=== PATIENT | female | born 1965 | race Caucasian/White ===

== ENCOUNTER 2024-01-27 06:01 | Inpatient (IN) ==
--- NOTE | 2024-01-10 10:35 | PAT Medication Instructions ---
Medication Instructions Date of Service January 10, 2024 Home Medications aspirin 81 mg tablet,delayed release 81 mg PO PM calcium carbonate 600 mg-vitamin D3 10 mcg (400 unit) tablet (Calcium 600 + D(3)) 1 tab PO HS coenzyme Q10 100 mg capsule (Co Q-10) 100 mg PO TID cyanocobalamin (vitamin B-12) 500 mcg lozenges 1,000 mcg PO PM estradiol 0.5 mg tablet 0.5 mg PO QAM hydrocodone 7.5 mg-acetaminophen 325 mg tablet 1 tab PO Q6H PRN indomethacin 50 mg capsule 50 mg PO TID magnesium 200 mg tablet 50 mg PO TID simvastatin 20 mg tablet (Zocor) 20 mg PO HS sumatriptan succinate 100 mg tablet (Imitrex) 100 mg PO UD PRN tramadol 50 mg tablet 50 mg PO Q6H PRN zolpidem 5 mg tablet (Ambien) 5 mg PO HS PRN Continue as directed sumatriptan succinate 100 mg tablet (Imitrex) 100 mg PO UD PRN(if needed) ASK your surgeon for instructions indomethacin 50 mg capsule 50 mg PO TID ASK your prescriber and surgeon aspirin 81 mg tablet,delayed release 81 mg PO PM estradiol 0.5 mg tablet 0.5 mg PO QAM STOP taking 2 weeks before surgery (or as soon as possible if surgery is within 2 weeks) coenzyme Q10 100 mg capsule (Co Q-10) 100 mg PO TID DO NOT take the morning of surgery magnesium 200 mg tablet 50 mg PO TID Take morning of surgery With a small sip of water, OTHERWISE NOTHING TO EAT OR DRINK AFTER MIDNIGHT: hydrocodone 7.5 mg-acetaminophen 325 mg tablet 1 tab PO Q6H PRN(if needed) tramadol 50 mg tablet 50 mg PO Q6H PRN(if needed) Take evening before surgery calcium carbonate 600 mg-vitamin D3 10 mcg (400 unit) tablet (Calcium 600 + D(3)) 1 tab PO HS cyanocobalamin (vitamin B-12) 500 mcg lozenges 1,000 mcg PO PM hydrocodone 7.5 mg-acetaminophen 325 mg tablet 1 tab PO Q6H PRN(if needed) tramadol 50 mg tablet 50 mg PO Q6H PRN(if needed) magnesium 200 mg tablet 50 mg PO TID simvastatin 20 mg tablet (Zocor) 20 mg PO HS zolpidem 5 mg tablet (Ambien) 5 mg PO HS PRN(if needed) Other Notes If you have any questions please call us at [phone] or [phone] or [phone] or [phone]
--- NOTE | 2024-01-17 13:26 | Anesthesiology Consultation ---
Date of Service January 17, 2024 Assessment & Plan (1) Encounter for pre-operative examination: Plan - awaiting final medical clearance. - Patient contacted office 01/23/24 in the morning and states that in recent days she has experienced onset of generalized significant arthralgias and skin is hot to touch-I advise that she needs to seek prompt medication evaluation and she verbalized understanding, states she will contact her PCP after our call and notify our office of outcome of evaluation. Surgeon's office notified. - medical clearance 01/10/24: "...preoperative visit...spinal surgery...no prior adverse reaction to general anesthesia...rash on her right upper leg has resolved...was evaluated by dermatology...clearance pending perioperative workup..." PAT testing to be faxed to PCP for final clearance. Chart Review Chart Review: Pending: Refer to Additional Notes / Consult section and Patient seen in Pre Admission Testing Teaching & Discussion Pre-Anesthesia Teaching/Discussion Notes: Instructed NPO after midnight before surgery, except medications with 15 cc of water. Medication instructions provided according to the PAT guidelines. History Surgery Operation Date: 01/27/24 07:45 Proposed Procedures p T11 to L2 and L5 to S1 Decompression and Fusion with Iliac Bolts, Hardware Removal L2-L5 - Francisco Javier Adams DO s Right Sacroiliac Joint Fusion - Francisco Javier Adams DO Patient is accompanied today by her . Height/Weight Height: 5 ft 5 in Weight: 130.8 kg Allergies Allergy/AdvReac Type Severity Reaction Status Date / Time No Known Allergies Allergy Unknown Verified 01/09/24 11:35 Medications Home Medications Medication Instructions Recorded Confirmed Last Taken aspirin 81 mg tablet,delayed 81 mg PO PM 01/09/24 01/09/24 Unknown release calcium carbonate 600 mg-vitamin 1 tab PO HS 01/09/24 01/09/24 Unknown D3 10 mcg (400 unit) tablet (Calcium 600 + D(3)) coenzyme Q10 100 mg capsule (Co 100 mg PO TID 01/09/24 01/09/24 Unknown Q-10) cyanocobalamin (vitamin B-12) 500 1,000 mcg PO PM 01/09/24 01/09/24 Unknown mcg lozenges estradiol 0.5 mg tablet 0.5 mg PO QAM 01/09/24 01/09/24 Unknown hydrocodone 7.5 mg-acetaminophen 1 tab PO Q6H PRN Pain 01/09/24 01/09/24 Unknown 325 mg tablet indomethacin 50 mg capsule 50 mg PO TID 01/09/24 01/09/24 Unknown magnesium 200 mg tablet 50 mg PO TID 01/09/24 01/09/24 Unknown simvastatin 20 mg tablet (Zocor) 20 mg PO HS 01/09/24 01/09/24 Unknown sumatriptan succinate 100 mg 100 mg PO UD PRN Migraine Headache 01/09/24 01/09/24 Unknown tablet (Imitrex) tramadol 50 mg tablet 50 mg PO Q6H PRN Pain 01/09/24 01/09/24 Unknown zolpidem 5 mg tablet (Ambien) 5 mg PO HS PRN Sleep 01/09/24 01/09/24 Unknown Past Medical History Medical History Chronic back pain History of COVID-19 Jul 06 2023 > symptoms resolved History of kidney stones passed on own Hyperlipidemia Lumbar stenosis with neurogenic claudication Migraines Patient denies h/o stroke, seizures, heart attack, heart failure, DM, HTN, blood clots/DVTs or blood transfusions. Exercise / Class Metabolic Activity II 4-5 Yardwork/Stairs/Walk up hill (denies chest discomfort or shortness of breath with one flight of stairs) Past Surgical History Surgical History History of arthroscopy bilat knees History of breast biopsy benign History of colonoscopy History of lumbar fusion x3 fusion L2-5 History of lumbar surgery prior to fusions History of total knee replacement bilat Hx of hysterectomy Past Anesthesia History No Hx of Anesthesia Complications and No Family Hx of Anesthesia Complications History of PONV No Hx of PONV and No Hx of Motion Sickness Social History Smoking Status: Former smoker Do You Dip or Chew Tobacco: No Smoking End Date: 16 yrs Hx Alcohol Use: No Hx Substance Use: No substance use type: does not use Review of Systems Occasional snoring, denies witnessed apneas. Patient denies chest pain, shortness of breath, dyspnea on exertion, reflux, fever, chills, cough, wheezing, or palpitations. Physical Exam Vital Signs Vitals BP 131/80 P 74 TEMP 98.4 SP02 96% on RA RESP 18 Physical Patient resting comfortably in chair in no acute distress, alert and oriented, responding appropriately throughout visit Full cervical extension range of motion without pain TMD < 3 finger breadths Mallampati Score 3 Dentition: intact, denies chipped or loose teeth, caps/crowns, implants or bridges Lungs: normal respiratory effort. Good air movement, clear throughout to auscul tation, no adventitious breath sounds Cardiac: regular rate and rhythm, no murmurs noted Carotid arteries: negative bruit bilat Lab Results Anesthesia Preop Results Results Anesthesia Widget: WBC 8.90 K/ul (4.8-10.8) 01/17/24 Hgb 12.3 g/dl (12.0-16.0) 01/17/24 Hct 39.8 % (37.0-47.0) 01/17/24 Plt 206 K/uL (130-400) 01/17/24 Na 137 mmol/L (136-145) 01/17/24 K 4.4 mmol/L (3.5-5.1) 01/17/24 Cl 102 mmol/L (98-107) 01/17/24 CO2 29 mmol/L (21-32) 01/17/24 BUN 15 mg/dl (6-23) 01/17/24 Creat 0.87 mg/dl (0.6-1.2) 01/17/24 Glucose Level 86 mg/dl (70-99(Fasting)) 01/17/24 PT 10.1 Seconds (9.0-12.0) 01/17/24 PTT 27 Seconds (21-31) 01/17/24 INR 0.9 (0.9-1.1) 01/17/24 Urine Color Yellow 01/17/24 Urine Appearance Clear (Clear) 01/17/24 Urine pH 5.5 (4.5-7.5) 01/17/24 Urine Specific Sheldon 1.023 (1.000-1.030) 01/17/24 Urine Protein Negative (Negative) 01/17/24 Urine Glucose (UA) Negative (Negative) 01/17/24 Urine Ketones Trace (Negative) H 01/17/24 Urine Blood Negative (Negative) 01/17/24 Urine Nitrite Negative (Negative) 01/17/24 Urine Bilirubin Negative (Negative) 01/17/24 Urine Urobilinogen Negative (Negative) 01/17/24 Urine Leukocyte Esterase Negative (Negative) 01/17/24 Blood Type A Positive 01/17/24 Antibody Screen NEGATIVE 01/17/24 Testing Electrocardiogram Date: 01/17/24 NSR, rate 71 bpm Chest X-Ray Date: 01/17/24 No active disease in the chest.
[2024-01-27] MEDS: LR 60ML/HR IV SCH (06:51)
[2024-01-27] MEDS: LR 15ML/HR IV SCH (06:52)
[2024-01-27] MEDS: CeleBREX 200 MG CAP PO SCH (06:52)
[2024-01-27] MEDS: ACETAMINOPHEN 500 MG TAB PO SCH (06:52)
[2024-01-27] MEDS: GABAPENTIN 600 MG DOSE PO SCH (06:52)
[2024-01-27] MEDS ORDERED: LIDOCAINE 2% 2 ML VIAL/AMP(20MG/ML) INFIL ONE (07:00)
[2024-01-27] MEDS ORDERED: PHENYLEPHRINE HCL 10 MG/ML VIAL ONE (07:00)
[2024-01-27] MEDS ORDERED: ROCURONIUM BROMIDE 10 MG/ML 5 ML VIAL IV ONE ×3 (07:00→10:20)
[2024-01-27] MEDS ORDERED: PROPOFOL IV EMULSION 10 MG/ML 20 ML VIAL IV ONE (07:00)
[2024-01-27] MEDS ORDERED: fentaNYL citrate PF 100 MCG/2 ML VIAL ONE (07:00)
[2024-01-27] MEDS ORDERED: ONDANSETRON INJ 2 MG/ML 2 ML VIAL ONE (07:00)
[2024-01-27] MEDS ORDERED: DEXAMETHASONE SOD INJ 4 MG/ML VIAL ONE (07:00)
[2024-01-27] MEDS ORDERED: KETAMINE HCL 10MG/ML SYR ONE (07:01)
[2024-01-27] MEDS ORDERED: MIDAZOLAM HCL 1 MG/ML 2ML VIAL ONE (07:01)
[2024-01-27] MEDS ORDERED: ALBUMIN HUMAN 5% 12.5 GM/250 ML VIAL IV ONE (07:07)
[2024-01-27] MEDS ORDERED: DexMEDEtomidine HCL IV 100 MCG/ML VIAL IV ONE (07:21)
[2024-01-27] MEDS ORDERED: ATROPINE SULFATE 0.1 MG/ML 10ML SYR IV PRN (07:21)
[2024-01-27] MEDS ORDERED: HYDROmorphone INJ 2 MG/ML SYR/VIAL IV PRN (07:21)
[2024-01-27] MEDS ORDERED: ePHEDrine sulfate 50 MG/ML AMP IV PRN (07:21)
[2024-01-27] MEDS ORDERED: ONDANSETRON INJ 2 MG/ML 2 ML VIAL IV PRN (07:21)
--- NOTE | 2024-01-27 07:41 | History & Physical Bridge Note ---
Date of Service January 27, 2024 History & Physical Bridge Note I have examined the patient, reviewed the History & Physical and in the interval since the performance of the History & Physical I have noted the following changes of clinical significance: no changes noted
--- NOTE | 2024-01-27 07:42 | History & Physical Report ---
Date of Service January 27, 2024 Assessment & Plan (1) Neurogenic claudication due to lumbar spinal stenosis: Plan: T11-L2 and L5-S1 decompression and fusion with iliac bolts, right SI joint fusion hardware removal L2-L5 History of Present Illness Chief Complaint: Back and leg pain Primary Care Provider: Crista Self MD This is a 58-year-old female who presents with chronic persistent back and leg pain and failing course of nonoperative care she is here for surgical invention. Allergies Allergy/AdvReac Type Severity Reaction Status Date / Time No Known Allergies Allergy Unknown Verified 01/27/24 06:21 Home Medications Medication Instructions Recorded Confirmed Type aspirin 81 mg tablet,delayed 81 mg PO PM 01/09/24 01/27/24 History release calcium carbonate 600 mg-vitamin 1 tab PO HS 01/09/24 01/27/24 History D3 10 mcg (400 unit) tablet (Calcium 600 + D(3)) coenzyme Q10 100 mg capsule (Co 100 mg PO TID 01/09/24 01/27/24 History Q-10) cyanocobalamin (vitamin B-12) 500 1,000 mcg PO PM 01/09/24 01/27/24 History mcg lozenges estradiol 0.5 mg tablet 0.5 mg PO QAM 01/09/24 01/27/24 History hydrocodone 7.5 mg-acetaminophen 1 tab PO Q6H PRN Pain 01/09/24 01/27/24 History 325 mg tablet indomethacin 50 mg capsule 50 mg PO TID 01/09/24 01/27/24 History magnesium 200 mg tablet 50 mg PO TID 01/09/24 01/27/24 History simvastatin 20 mg tablet (Zocor) 20 mg PO HS 01/09/24 01/27/24 History sumatriptan succinate 100 mg 100 mg PO UD PRN Migraine Headache 01/09/24 01/27/24 History tablet (Imitrex) tramadol 50 mg tablet 50 mg PO Q6H PRN Pain 01/09/24 01/27/24 History zolpidem 5 mg tablet (Ambien) 5 mg PO HS PRN Sleep 01/09/24 01/27/24 History Past Med/Surg History Problem List (Updated 01/27/24 @ 07:42 by Francisco Javier Adams DO) Neurogenic claudication due to lumbar spinal stenosis Encounter for pre-operative examination Lumbar stenosis with neurogenic claudication (Acute 01/25/14) Medical History Chronic back pain History of COVID-19 Jul 06 2023 > symptoms resolved History of kidney stones passed on own Hyperlipidemia Lumbar stenosis with neurogenic claudication Migraines Surgical History History of arthroscopy bilat knees History of breast biopsy benign History of colonoscopy History of lumbar fusion x3 fusion L2-5 History of lumbar surgery prior to fusions History of total knee replacement bilat Hx of hysterectomy Social History Smoking Status: Former smoker Smoking End Date: 18 yrs; Second Hand Exposure: No; Do You Dip or Chew Tobacco: No; Tobacco Cessation Education Requested by Patient: No Hx Alcohol Use: No Hx Substance Use: No Preferred Language: Welsh Communication Ability: Effective Mallet And Die Cutter Required: No Beliefs That Will Affect Care: None Current Living Situation: Spouse Other Information That Helps Us Care for You: No Feels Safe at Home: Yes Safety Concerns: Feels Safe At This Time Assistive Devices: None Physical Exam Physical Exam: Patient is alert and oriented heart regular in rhythm Lungs clear Results & Data Results & Data Vital Signs (Past 12 Hours) Vital Signs Temp Pulse Resp BP Pulse Ox O2 Del Method 01/27/24 06:29 36.9 C 88 20 176/94 H 94 Room Air
[2024-01-27] MEDS: ceFAZolin 3000MG 3,000 MG/72.5 ML BAG IV SCH (07:50)
[2024-01-27] MEDS ORDERED: HYDROmorphone INJ 2 MG/ML SYR/VIAL ONE (08:24)
[2024-01-27] MEDS ORDERED: SUGAMMADEX SODIUM 200 MG/2 ML VIAL IV ONE (10:20)
[2024-01-27] MEDS: BUPIVACAINE/EPINEPHRINE 0.25% 1:200,000 30 ML VIAL ONE (11:04)
[2024-01-27] MEDS: ceFAZolin 330 MG/ML 1 GM VIAL ONE (11:04)
[2024-01-27] MEDS: FLOSEAL HEMOSTATIC MATRIX 10ML TOP ONE (11:04)
--- NOTE | 2024-01-27 11:22 | Operative Report ---
Post Operative Report Pre & Post Diagnosis Operation Date: 01/27/24 07:45 Pre-Op Diagnosis: Spinal Stenosis of Lumbar Region with Neurogenic Claudication Sacroiliitis Bertolotti syndrome Morbid obesity Post-Op Diagnosis: Same I identified the patient and participated in the time-out.: Yes Procedure Operation Date: 01/27/24 07:45 Actual Procedures #1 removal of posterior instrumentation L2-L5.. #2 exploration of fusion L2-L5. #3 lumbar decompression with bilateral medial facetectomies and foraminotomies L5-S1. #4 posterior spinal fusion L5-S1. #5 interbody fusion L5-S1. #6 placement of Spira 12 x 26 mm x 2 at L5-S1. #7 bilateral open SI joint fusion. #8 placement of Nevro 9 mm SI joint cage on the right. #9 placement posterior segmental instrumentation L2-S1 including bilateral iliac bolts. #10 please infuse collagen sponge combined with Koros bone graft in the interbody space and bilateral SI joints and os design bone graft in the interbody space. Surgeon Francisco Javier Adams, DO Rose Grower Franklyn Lopez Estimated Blood Loss 1,150 Findings See Below The patient is 5 foot 5 weighing over 120 kg with a BMI in excess of 47. This combined with an EBL of greater than 1150 cc created significant technical difficulty from positioning exposure and the procedure itself. This at least 50% increased operative time. I am recommending a modifier 22. Specimens None Indications This is a 58-year-old female known to the presents above-mentioned diagnosis of failed extensive course of nonoperative care she is here for surgical invention. Description of Procedure Patient was met with identified informed consent obtained. Patient was then taken to the operative suite underwent patient placed in a prone position on the Ezio table on top of the Franco frame. All bony prominences well-padded eyes inspected to ensure no external precipice spine. This point the lumbar spine was prepped and draped in normal sterile fashion. Sharp dissection with the assistance of Bovie cautery form down to and exposing the instrumentation at L 2 L3-L4-L5 bilaterally. Then exposed the bilateral sacral ala and SI joints as well as the iliac crests. I then removed the instrumentation bilaterally explored the fusion mass noting it to be mature and intact. Iliac bolts were then placed bilaterally with the assistance of fluoroscopy in the bilateral SI joints exposed. In the right SI joint I curetted out the subarticular cartilage and placed a Nevro 1 implant filled with os design bone graft directly in the joint locking and into position to transfix the ileum to the sacrum. The left SI joint I burred to subcortical bleeding bone and packed with Koros bone graft and infuse. I performed a complete laminectomy of L4-5 including bilateral medial facetectomies and foraminotomies to address all neural compression. Pedicle screws were then placed in L2 L4-L5 and S1 levels bilaterally with assistance of fluoroscopy and appropriate size bernardo placed with connectors locking into the iliac bolts. By way of transforaminal approach on the right discectomy of L5-S1 was performed endplates guided to subcortical B bone and a 12 x 26 mm spiral cage filled with os design bone graft tapped in position. Then proceeded to the left transforaminal region at L5-S1 again discectomy performed endplates guided to subcortical white bone and a second 12 x 26 mm spiral cage filled with Oxyzyme bone graft tapped in position. The rods were then locked in final position bilaterally. The transverse processes of L5 the sacral ala were burred to subcortical bleeding bone. Infuse collagen sponge, with Koros bone graft was then placed in the posterior lateral gutters. 15 round MARCELINO inserted. The incision was then closed with 1 Vicryl in the fascia 2-0 Vicryl subcutaneously and 4 Monocryl for final closure. Steri-Strips and sterile dressing placed. Patient waken taken to PACU in stable condition. Please note Franklyn Lopez was present out the entire procedure involved in patient positioning complex portions of the surgery and final skin closure. Lastly spinal cord monitoring was utilized at the procedure no changes noted. I attest to the content of the Intraoperative Record and any orders documented therein. Any exceptions are noted below.
--- NOTE | 2024-01-27 11:40 | Fluoroscopy Report ---
FL lumbar spine 2-3V CLINICAL HISTORY: T11-L2 AND L5-S1 D/F W/ ILIAC BOLTS COMPARISON STUDY: None. FLUOROSCOPY TIME: 1 minute 22 seconds. FLUOROSCOPY IMAGES: 4 Ka,r: 145 mGy FINDINGS: Posterior decompression fusion within the thoracolumbar spine with pedicle screws and rods. There are bilateral sacroiliac bolts noted. The exact levels are difficult to determine on the spot images. Hardware appears intact. IMPRESSION: Fluoroscopic assistance as above. ACT 112: Negative or not required by law. Electronically signed by: Inderjit Colby M.D. 01/27/2024 11:38 AM
[2024-01-27] MEDS: fentaNYL citrate PF 100 MCG/2 ML VIAL IV PRN (12:41)
[2024-01-27] MEDS: LACTATED RINGER'S 1,000 ML IV SCH (13:30)
[2024-01-27] MEDS ORDERED: FAMOTIDINE 20 MG TAB PO PRN (13:31)
[2024-01-27] MEDS ORDERED: DO NOT ADMINISTER FLU VACCINE PRN (13:31)
[2024-01-27] MEDS ORDERED: HYDROmorphone INJ 0.5 MG/0.5 ML SYR IV PRN (13:31)
[2024-01-27] MEDS ORDERED: DO NOT ADMINISTER PNEUMOCOCCAL VACCINE PRN (13:31)
[2024-01-27] MEDS ORDERED: ACETAMINOPHEN 1,000 MG/100 ML VIAL IV PRN (13:31)
[2024-01-27] MEDS ORDERED: diphenhydrAMINE Capsule 25 MG CAP PO PRN (13:31)
[2024-01-27] MEDS ORDERED: PROMETHAZINE HCL 12.5 MG in SODIUM CHLORIDE 0.9% 50 ML IV PRN (13:31)
[2024-01-27] MEDS ORDERED: ALUMINUM/MAGNESIUM SUSP 30 ML UDC PO PRN (13:31)
[2024-01-27] MEDS ORDERED: SOD PHOSPHATE/SOD BIPHOSPHATE ENEMA 132 ML BTL PR PRN (13:31)
[2024-01-27] MEDS ORDERED: LORazepam 0.5 MG TAB PO PRN (13:31)
[2024-01-27] MEDS ORDERED: ONDANSETRON 4 MG OD TAB PO PRN (13:31)
[2024-01-27] MEDS ORDERED: LORazepam 0.5 MG in SYRINGE 0.25 ML IV PRN (13:31)
[2024-01-27] MEDS ORDERED: ZOLPIDEM TARTRATE 5 MG TAB PO PRN (13:31)
[2024-01-27] MEDS ORDERED: MAGNESIUM HYDROXIDE SUSP 30 ML UDC PO PRN (13:31)
[2024-01-27] MEDS ORDERED: hydrOXYzine HCl 25 MG TAB PO PRN (13:31)
[2024-01-27] MEDS ORDERED: NALOXONE HCL 0.4 MG/1 ML VIAL/CARP IV PRN (13:31)
[2024-01-27] MEDS ORDERED: bisacodyL 10 MG SUPP PR PRN (13:31)
[2024-01-27] MEDS ORDERED: METOCLOPRAMIDE HCL INJ 5 MG/ML 2 ML VIAL IV PRN (13:31)
--- NOTE | 2024-01-27 13:31 | Anesthesiology Progress Note ---
Date of Service January 27, 2024 Anesthesia Post Procedure Vital Signs Vital Signs: Temp Pulse Resp BP Pulse Ox O2 Del Method O2 Flow Rate 01/27/24 13:15 85 18 108/72 94 Nasal Cannula 2 01/27/24 13:00 78 16 104/66 93 Nasal Cannula 2 01/27/24 12:50 73 16 112/55 L 94 Nasal Cannula 2 01/27/24 12:40 97.7 F 78 16 107/62 96 Nasal Cannula 2 01/27/24 12:30 81 14 122/68 96 Nasal Cannula 2 01/27/24 12:20 84 16 115/70 90 Room Air 01/27/24 12:10 80 16 114/62 98 Oxymask 4 01/27/24 12:00 75 12 139/80 99 Oxymask 6 01/27/24 11:54 98.2 F 90 18 140/74 99 Oxymask 8 01/27/24 06:29 98.4 F 88 20 176/94 H 94 Room Air Pain Intensity Right Lower Back: Pain Intensity: 8 Lower Back: Pain Intensity: 4 Transfer of Care Handoff Completed per policy Notes Mental Status: alert / awake / arousable and participated in evaluation Patient Amnestic to Procedure: Yes Nausea / Vomiting: adequately controlled Pain: adequately controlled Airway Patency, RR, SpO2: stable & adequate BP & HR: stable & adequate Hydration State: stable & adequate Anesthetic Complications: no major complications apparent and Pt Satisfied with anesthetic care
[2024-01-27] MEDS ORDERED: NON-FORMULARY MEDICATION (Coenzyme Q10 [Co Q-10] 100 mg Capsule) PO SCH (14:00)
[2024-01-27] MEDS: HYDROmorphone INJ 1 MG/ML SYRINGE IV PRN (14:05)
[2024-01-27] MEDS: oxyCODONE HCL IR 5 MG TAB (IMMEDIATE RELEASE) PO PRN (15:30)
[2024-01-27] MEDS: MAGNESIUM OXIDE 400 MG TAB PO SCH (15:31)
[2024-01-27] MEDS: ceFAZolin 2000MG 2,000 MG/15 ML SYR IV SCH (16:59)
[2024-01-27] MEDS: ASPIRIN 81 MG ECTAB PO SCH (20:45)
[2024-01-27] MEDS: INDOMETHACIN 25 MG CAP PO SCH (20:45)
[2024-01-27] MEDS: CYANOCOBALAMIN (B-12) 500 MCG TABLET PO SCH (20:46)
[2024-01-27] MEDS: CALCIUM 600MG + VIT D 400 IU TAB PO SCH (20:46)
[2024-01-27] MEDS: SIMVASTATIN 20 MG TAB PO SCH (20:46)
[2024-01-27] MEDS: DOCUSATE SODIUM/SENNA 50/8.6MG TAB PO SCH (20:53)
[2024-01-27] MEDS: SUMAtriptan succinate 100 MG TAB PO PRN (21:56)
[2024-01-28] MEDS: POLYETHYLENE (MIRALAX) 17 GM PACK PO SCH (05:57)
[2024-01-28 06:39] LABS: Basophils # (auto) 0.02 K/uL (0.00-0.20); Basophils % (auto) 0.1 %; Hematocrit (blood only) 29.7 % (37.0-47.0); Immature Granulocytes # (auto) 0.12 K/uL (0.01-0.20); Immature Granulocytes % (auto) 0.8 %; Lymphocytes # (auto) 1.76 K/uL (1.20-3.40); Lymphocytes % (auto) 11.9 %; Mean Corpuscular Hemoglobin 26.5 pg (25.0-34.0); Mean Corpuscular Hgb Conc 30.3 g/dL (32.0-36.0); Mean Corpuscular Volume 87.4 fL (80.0-100.0); Monocytes # (auto) 0.82 K/uL (0.11-0.59); Monocytes % (auto) 5.5 %; Neutrophils # (auto) 12.11 K/uL (1.40-6.50); Neutrophils % (auto) 81.7 %; Platelet Count 220 K/uL (130-400); RDW Coefficient of Variation 15.5 % (11.5-14.5); RDW Standard Deviation 49.1 fL (36.4-46.3); White Blood Count 14.83 K/ul (4.8-10.8)
[2024-01-28 06:46] LABS: BUN Creatinine Ratio 8.7 (10-20); Calcium 8.6 mg/dl (8.6-10.3); Est GFR (African American) 78.4 ml/min; Est GFR (Non-African American) 67.7 ml/min; Potassium 4.2 mmol/L (3.5-5.1)
[2024-01-28] MEDS: estradioL 1 MG TAB PO SCH (08:10)
--- NOTE | 2024-01-28 08:10 | Orthopedic Progress Note ---
Date of Service January 28, 2024 Assessment & Plan (1) Neurogenic claudication due to lumbar spinal stenosis: Plan: This time initiate physical therapy ambulate as tolerated. Monitor MARCELINO output. Admission and Anticipated Discharge Date Admission Date: January 27, 2024 Subjective The patient's pain is controlled. She feels her leg symptoms markedly improved. Physical Exam Physical Exam: Patient is in bed. She is distracted testing. She is comfortable. Results & Data Vital Signs (Past 12 Hours) Vital Signs Temp Pulse Resp BP Pulse Ox O2 Del Method O2 Flow Rate 01/28/24 03:00 36.8 C 71 20 114/61 98 Nasal Cannula 2 01/27/24 23:31 Nasal Cannula 2 01/27/24 22:43 37.1 C 83 18 126/76 98 Nasal Cannula 2 Queries Orthopedic Spine Acute Posthemorrhagic Anemia: Yes Obesity: Yes Vertebral Fracture Secondary to Osteoporosis: No
[2024-01-28] MEDS: dexAMETHasone 6 MG in SYRINGE 0 ML IV SCH (08:12)
--- NOTE | 2024-01-28 08:44 | Hospitalist Consultation ---
Date of Consultation January 28, 2024 Assessment & Plan (1) Neurogenic claudication due to lumbar spinal stenosis: 58-year-old with lumbar spinal stenosis resultant pain radiating down both legs and leg weakness. underwent spinal surgery as below with good results so far. Operation Date: 01/27/24 07:45 Actual Procedures #1 removal of posterior instrumentation L2-L5.. #2 exploration of fusion L2-L5. #3 lumbar decompression with bilateral medial facetectomies and foraminotomies L5-S1. #4 posterior spinal fusion L5-S1. #5 interbody fusion L5-S1. #6 placement of Spira 12 x 26 mm x 2 at L5-S1. #7 bilateral open SI joint fusion. #8 placement of Nevro 9 mm SI joint cage on the right. #9 placement posterior segmental instrumentation L2-S1 including bilateral iliac bolts. #10 please infuse collagen sponge combined with Koros bone graft in the interbody space and bilateral SI joints and os design bone graft in the interbody space. ABLA postop anemia Hg 12-->9 iron supplementation once having regular BMs postop elevated fasting glucose (144 at 5:45 AM) and leukocytosis result of steroid effect hx impaired fasting glucose, at risk for diabetes DVT prophylaxis - SCDs. Chemoprophylaxis when safe per spine surgeon (2) Migraines: continue PRN triptan, tramadol (3) Hyperlipidemia: continue simvastatin (4) Morbid obesity: BMI 47 elevated risk for ÁNGEL but no known history of this caution with opioids and other sedating medications, could trigger respiratory suppression Plan metabolic syndrome on ASA, statin - continued hyst for endometriosis, on HRT Hx B12, vit D deficiencies - cont po B12, Ca/D L TKR, R TKR History of Present Illness Reason for Consultation: evaluate prediabetes, migraine Requesting Physician: Dr. Adams Attending Physician: Francisco Javier Adams, DO History of Present Illness 58 y/o woman with history of multiple back surgeries. Underwent spinal surgery for lumbar spinal stenosis with radiculopathy yesterday. Tolerates surgery well, radicular pain resolved and leg weakness has improved. Still with significant incisional/postop low back pain and drain and amado still in place. Sitting up in chair. No shortness of breath or chest pain. No history of VTE. Has not had BM yet but usually very regular. spinal surgeries 2004, , 10, 14 uses norco prn stopped indomethacin ten days ago preop, increased muscle and joint pain thereafter Has frequent migraine headache several times a week. Controlled with NSAID and triptan. Prediabetes / insulin resistant. BG this AM 140 but had received perioperative dexamethasone. Allergies Allergy/AdvReac Type Severity Reaction Status Date / Time No Known Allergies Allergy Unknown Verified 01/27/24 06:21 Home Medications Medication Instructions Recorded Confirmed Type aspirin 81 mg tablet,delayed 81 mg PO PM 01/09/24 01/27/24 History release calcium carbonate 600 mg-vitamin 1 tab PO HS 01/09/24 01/27/24 History D3 10 mcg (400 unit) tablet (Calcium 600 + D(3)) coenzyme Q10 100 mg capsule (Co 100 mg PO TID 01/09/24 01/27/24 History Q-10) cyanocobalamin (vitamin B-12) 500 1,000 mcg PO PM 01/09/24 01/27/24 History mcg lozenges estradiol 0.5 mg tablet 0.5 mg PO QAM 01/09/24 01/27/24 History hydrocodone 7.5 mg-acetaminophen 1 tab PO Q6H PRN Pain 01/09/24 01/27/24 History 325 mg tablet indomethacin 50 mg capsule 50 mg PO TID 01/09/24 01/27/24 History magnesium 200 mg tablet 50 mg PO TID 01/09/24 01/27/24 History simvastatin 20 mg tablet (Zocor) 20 mg PO HS 01/09/24 01/27/24 History sumatriptan succinate 100 mg 100 mg PO UD PRN Migraine Headache 01/09/24 01/27/24 History tablet (Imitrex) tramadol 50 mg tablet 50 mg PO Q6H PRN Pain 01/09/24 01/27/24 History zolpidem 5 mg tablet (Ambien) 5 mg PO HS PRN Sleep 01/09/24 01/27/24 History Patient History Medical History History of kidney stones passed on own Chronic back pain Migraines History of COVID-19 Jul 06 2023 > symptoms resolved Lumbar stenosis with neurogenic claudication Surgical History History of breast biopsy benign History of colonoscopy History of lumbar fusion x3 fusion L2-5 History of total knee replacement bilat History of arthroscopy bilat knees Hx of hysterectomy History of lumbar surgery prior to fusions Social History Smoking Status: Former smoker Smoking End Date: 18 yrs; Second Hand Exposure: No; Do You Dip or Chew Tobacco: No; Tobacco Cessation Education Requested by Patient: No Hx Alcohol Use: No Hx Substance Use: No Preferred Language: Yakut Communication Ability: Effective Manager Parking Required: No Beliefs That Will Affect Care: None Current Living Situation: Spouse Other Information That Helps Us Care for You: No Feels Safe at Home: Yes Safety Concerns: Feels Safe At This Time Assistive Devices: Cane Review of Systems 2 Review of Systems: All systems reviewed & are unremarkable except as noted in HPI & below Physical Exam 2 Physical Exam: PHYSICAL EXAMINATION Last 24h vital signs reviewed, see documentation in flowsheet General: comfortable appearing, no distress, sitting up in chair HEENT: Normocephalic, atraumatic, pupils round and equal, sclerae anicteric, no conjunctival injection, moist mucus membranes Lungs: Normal respiratory effort. Clear to auscultation bilaterally. No RRW Heart: Regular rate and rhythm, no murmurs. No JVD Abdomen: Soft, nontender, nondistended. Bowel sounds present. lumbar incision is dressed, drain in place Amado catheter with clear yellow urine Extremities: Warm, dry, well-perfused. mild symmetric lower extremity edema. Neuro: Alert and oriented x 4, face symmetric, moves 4 extremities well. knee extension is at least 4 out of 5, dorsi flexion 4 out of 5, plantarflexion 5 out of 5. sensation intact to light touch in both lower extremities Psych: Normal affect and behavior Results & Data Results & Data Vital Signs (Past 12 Hours) Vital Signs Temp Pulse Resp BP Pulse Ox O2 Del Method O2 Flow Rate 01/28/24 08:20 37.0 C 84 18 126/78 98 Nasal Cannula 2 01/28/24 03:00 36.8 C 71 20 114/61 98 Nasal Cannula 2 01/27/24 23:31 Nasal Cannula 2 01/27/24 22:43 37.1 C 83 18 126/76 98 Nasal Cannula 2 Laboratory Results 01/28/24 05:48 01/28/24 05:48 PG Care Time/CCT Total # of Minutes Spent Total Time Spent with Patient: Total time spent is greater than 50% in coordination of care (as documented) at patient's floor/unit and/or counseling patient: Coding Level of Care Code 64010 IN/OBS CONSULT LVL 2,35M Diagnoses Neurogenic claudication due to lumbar spinal stenosis M48.062 Migraines G43.909 Hyperlipidemia E78.5 Morbid obesity E66.01
--- NOTE | 2024-01-29 10:30 | Orthopedic Progress Note ---
Date of Service January 29, 2024 Assessment & Plan (1) Neurogenic claudication due to lumbar spinal stenosis: Plan: This time we will continue physical therapy as tolerated. Will maintain the Ahumada catheter another 24 hours. Hopefully discharge home next few days. Admission and Anticipated Discharge Date Admission Date: January 27, 2024 Subjective Patient's back pain is controlled leg symptoms markedly improved Physical Exam Physical Exam: Patient is in the chair at the bedside. She is comfortable. Discussed when to testing. Results & Data Vital Signs (Past 12 Hours) Vital Signs Temp Pulse Resp BP Pulse Ox O2 Del Method 01/29/24 07:29 36.4 C L 72 18 101/62 95 Room Air Queries Orthopedic Spine Acute Posthemorrhagic Anemia: Yes Obesity: Yes Vertebral Fracture Secondary to Osteoporosis: No
[2024-01-29] MEDS ORDERED: POLYETHYLENE (MIRALAX) 17 GM PACK PO PRN (14:39)
--- NOTE | 2024-01-29 14:41 | Hospitalist Progress Note ---
Date of Service January 29, 2024 Assessment & Plan (1) Neurogenic claudication due to lumbar spinal stenosis: Plan: 58-year-old with lumbar spinal stenosis resultant pain radiating down both legs and leg weakness. underwent spinal surgery as below with good results so far. Operation Date: 01/27/24 07:45 Actual Procedures #1 removal of posterior instrumentation L2-L5.. #2 exploration of fusion L2-L5. #3 lumbar decompression with bilateral medial facetectomies and foraminotomies L5-S1. #4 posterior spinal fusion L5-S1. #5 interbody fusion L5-S1. #6 placement of Spira 12 x 26 mm x 2 at L5-S1. #7 bilateral open SI joint fusion. #8 placement of Nevro 9 mm SI joint cage on the right. #9 placement posterior segmental instrumentation L2-S1 including bilateral iliac bolts. #10 please infuse collagen sponge combined with Koros bone graft in the interbody space and bilateral SI joints and os design bone graft in the interbody space. ABLA postop anemia Hg 12-->9 iron supplementation once having regular BMs postop added back as needed MiraLAX for constipation, also has senna DOS and Fleet enema as needed elevated fasting glucose (144 at 5:45 AM) and leukocytosis result of steroid effect hx impaired fasting glucose, at risk for diabetes DVT prophylaxis - SCDs. Chemoprophylaxis when safe per spine surgeon (2) Migraines: Plan: continue PRN triptan, tramadol (3) Hyperlipidemia: Plan: continue simvastatin (4) Morbid obesity: Plan: BMI 47 elevated risk for ÁNGEL but no known history of this caution with opioids and other sedating medications, could trigger respiratory suppression Plan metabolic syndrome on ASA, statin - continued hyst for endometriosis, on HRT Hx B12, vit D deficiencies - cont po B12, Ca/D L TKR, R TKR possibly home Tuesday Admission and Anticipated Discharge Date Admission Date: January 27, 2024 Subjective Finally slept last night but was behind on pain control and woke up with severe pain in lower back at incision leg weakness improved and no pain radiating down legs no shortness of breath no increase in leg edema still has Ahumada catheter and lumbar drain no BM yet had 4 doses of MiraLAX had migraine yesterday but this resolved no headache today Physical Exam 2 Physical Exam: PHYSICAL EXAMINATION Last 24h vital signs reviewed, see documentation in flowsheet General: comfortable appearing, no distress, sitting up in chair HEENT: Normocephalic, atraumatic, pupils round and equal, sclerae anicteric, no conjunctival injection, moist mucus membranes Lungs: Normal respiratory effort. Heart: Abdomen: nondistended eating well Ahumada catheter with clear yellow urine Extremities: Warm, dry, well-perfused. mild symmetric lower extremity edema - unchanged Neuro: Alert and oriented x 4, face symmetric, moves 4 extremities well. Psych: Normal affect and behavior Results & Data Results & Data Vital Signs (Past 12 Hours) Vital Signs Temp Pulse Resp BP Pulse Ox O2 Del Method 01/29/24 07:29 36.4 C L 72 18 101/62 95 Room Air Laboratory Results 01/28/24 05:48 01/28/24 05:48 PG Care Time/CCT Total # of Minutes Spent Total Time Spent with Patient: Total time spent is greater than 50% in coordination of care (as documented) at patient's floor/unit and/or counseling patient: Coding Level of Care Code 34151 SUB INP/OBS CARE 07/28MIN Diagnoses Neurogenic claudication due to lumbar spinal stenosis M48.062 Migraines G43.909 Hyperlipidemia E78.5 Morbid obesity E66.01
[2024-01-30] MEDS: traMADol HCL 50 MG TABLET PO PRN (06:25)
[2024-01-30 08:44] LABS: Hematocrit (blood only) 26.2 % (37.0-47.0); Hemoglobin 8.1 g/dl (12.0-16.0); Mean Corpuscular Hemoglobin 26.7 pg (25.0-34.0); Mean Corpuscular Hgb Conc 30.9 g/dL (32.0-36.0); Mean Corpuscular Volume 86.5 fL (80.0-100.0); Mean Platelet Volume 11.6 fL (9.4-12.4); Nucleated RBC # (auto) 0.05 K/uL (0.00-0.12); Nucleated RBC % (auto) 0.5 %; Platelet Count 189 K/uL (130-400); RDW Coefficient of Variation 15.8 % (11.5-14.5); RDW Standard Deviation 49.7 fL (36.4-46.3); Red Blood Count 3.03 M/uL (4.20-5.40); White Blood Count 10.17 K/ul (4.8-10.8)
[2024-01-30 09:01] LABS: Calcium 8.4 mg/dl (8.6-10.3); Est GFR (African American) 81.6 ml/min; Est GFR (Non-African American) 70.4 ml/min; Potassium 3.9 mmol/L (3.5-5.1)
--- NOTE | 2024-01-30 09:35 | Orthopedic Progress Note ---
Date of Service January 30, 2024 Assessment & Plan (1) Neurogenic claudication due to lumbar spinal stenosis: Plan: At this time we will have her undergo just modest activity today. And reinitiate physical therapy tomorrow including steps. Possibly home tomorrow. I did discontinue her drain today. Admission and Anticipated Discharge Date Admission Date: January 27, 2024 Subjective Back pain is controlled leg symptoms markedly improved Physical Exam Physical Exam: Patient is up and ambulating with a walker. Distracted testing. Results & Data Vital Signs (Past 12 Hours) Vital Signs Temp Pulse Pulse Resp BP BP Pulse Ox 01/30/24 08:14 36.4 C L 85 18 118/80 94 01/30/24 07:28 36.6 C 83 18 121/80 95 01/30/24 07:15 O2 Del Method 01/30/24 08:14 Room Air 01/30/24 07:28 Room Air 01/30/24 07:15 Room Air Queries Orthopedic Spine Acute Posthemorrhagic Anemia: Yes Obesity: Yes Vertebral Fracture Secondary to Osteoporosis: No
--- NOTE | 2024-01-30 14:06 | Hospitalist Progress Note ---
Date of Service January 30, 2024 Assessment & Plan (1) Neurogenic claudication due to lumbar spinal stenosis: Plan: 58-year-old with lumbar spinal stenosis resultant pain radiating down both legs and leg weakness. underwent spinal surgery as below with good results so far. Operation Date: 01/27/24 07:45 Actual Procedures #1 removal of posterior instrumentation L2-L5.. #2 exploration of fusion L2-L5. #3 lumbar decompression with bilateral medial facetectomies and foraminotomies L5-S1. #4 posterior spinal fusion L5-S1. #5 interbody fusion L5-S1. #6 placement of Spira 12 x 26 mm x 2 at L5-S1. #7 bilateral open SI joint fusion. #8 placement of Nevro 9 mm SI joint cage on the right. #9 placement posterior segmental instrumentation L2-S1 including bilateral iliac bolts. #10 please infuse collagen sponge combined with Koros bone graft in the interbody space and bilateral SI joints and os design bone graft in the interbody space. ABLA postop anemia Hg 12-->8 iron supplementation once having regular BMs postop - discussed iron rich foods and oral iron supplement with her added back as needed MiraLAX for constipation, also has senna DOS and Fleet enema as needed. had 2 BMs today elevated fasting glucose (144 at 5:45 AM) and leukocytosis result of steroid effect hx impaired fasting glucose, at risk for diabetes DVT prophylaxis - SCDs. Chemoprophylaxis when safe per spine surgeon (2) Migraines: Plan: continue PRN triptan, tramadol (3) Hyperlipidemia: Plan: continue simvastatin (4) Morbid obesity: Plan: BMI 47 elevated risk for ÁNGEL but no known history of this caution with opioids and other sedating medications, could trigger respiratory suppression Plan metabolic syndrome on ASA, statin - continued hyst for endometriosis, on HRT Hx B12, vit D deficiencies - cont po B12, Ca/D L TKR, R TKR possibly home Tuesday Admission and Anticipated Discharge Date Admission Date: January 27, 2024 Subjective she had a bad morning because she feels really irritable and having multiple hot flashes we are attributing this to the dexamethasone still getting IV pain medication however drains are out Ahumada is out she walked a lot with physical therapy yesterday including stairs slight migraine hoping for home tomorrow but it is a long drive 3 hours Physical Exam 2 Physical Exam: PHYSICAL EXAMINATION Last 24h vital signs reviewed, see documentation in flowsheet General: sitting in the chair by the window with an ice pack on her forehead HEENT: Normocephalic, atraumatic, pupils round and equal, sclerae anicteric, no conjunctival injection, moist mucus membranes Lungs: Normal respiratory effort. Heart: Abdomen: nondistended Ahumada catheter was removed Extremities: Warm, dry, well-perfused. mild symmetric lower extremity edema - unchanged Neuro: Alert and oriented x 4, face symmetric, moves 4 extremities well. Psych: Normal affect and behavior Results & Data Results & Data Vital Signs (Past 12 Hours) Vital Signs Temp Pulse Pulse Resp BP BP Pulse Ox 01/30/24 08:14 36.4 C L 85 18 118/80 94 01/30/24 07:28 36.6 C 83 18 121/80 95 01/30/24 07:15 O2 Del Method 01/30/24 08:14 Room Air 01/30/24 07:28 Room Air 01/30/24 07:15 Room Air Laboratory Results 01/30/24 08:17 01/30/24 08:17 PG Care Time/CCT Total # of Minutes Spent Total Time Spent with Patient: Total time spent is greater than 50% in coordination of care (as documented) at patient's floor/unit and/or counseling patient: Coding Level of Care Code 65042 SUB INP/OBS CARE 07/28MIN Diagnoses Neurogenic claudication due to lumbar spinal stenosis M48.062 Migraines G43.909 Hyperlipidemia E78.5 Morbid obesity E66.01
[2024-01-31 10:21] LABS: Hematocrit (blood only) 27.3 % (37.0-47.0); Hemoglobin 8.3 g/dl (12.0-16.0); Mean Corpuscular Hemoglobin 26.4 pg (25.0-34.0); Mean Corpuscular Hgb Conc 30.4 g/dL (32.0-36.0); Mean Corpuscular Volume 86.9 fL (80.0-100.0); Mean Platelet Volume 12.3 fL (9.4-12.4); Nucleated RBC % (auto) 0.8 %; Platelet Count 246 K/uL (130-400); RDW Coefficient of Variation 15.9 % (11.5-14.5); RDW Standard Deviation 50.2 fL (36.4-46.3); Red Blood Count 3.14 M/uL (4.20-5.40); White Blood Count 12.92 K/ul (4.8-10.8)
[2024-01-31 10:56] LABS: Estimated Average Glucose 137 mg/dl; Hemoglobin A1C 6.4 % (4.5-5.6)
--- NOTE | 2024-01-31 12:33 | Orthopedic Progress Note ---
Date of Service January 31, 2024 Assessment & Plan (1) Neurogenic claudication due to lumbar spinal stenosis: Plan: We will continue activity today. She is going to attempt stairs today. She would most likely discharge home tomorrow. Admission and Anticipated Discharge Date Admission Date: January 27, 2024 Subjective Patient's back pain is controlled leg symptoms improved. Physical Exam Physical Exam: Patient is in the chair at the bedside. She is comfortable. Skin strength testing. Results & Data Vital Signs (Past 12 Hours) Vital Signs Temp Pulse Resp BP Pulse Ox O2 Del Method 01/31/24 07:12 36.6 C 65 16 145/83 H 93 Room Air Queries Orthopedic Spine Acute Posthemorrhagic Anemia: Yes Obesity: Yes Vertebral Fracture Secondary to Osteoporosis: No
--- NOTE | 2024-01-31 13:11 | Hospitalist Progress Note ---
Date of Service January 31, 2024 Assessment & Plan (1) Neurogenic claudication due to lumbar spinal stenosis: Plan: POD #4 s/p - #1 removal of posterior instrumentation L2-L5.. #2 exploration of fusion L2-L5. #3 lumbar decompression with bilateral medial facetectomies and foraminotomies L5-S1. #4 posterior spinal fusion L5-S1. #5 interbody fusion L5-S1. #6 placement of Spira 12 x 26 mm x 2 at L5-S1. #7 bilateral open SI joint fusion. #8 placement of Nevro 9 mm SI joint cage on the right. #9 placement posterior segmental instrumentation L2-S1 including bilateral iliac bolts. #10 please infuse collagen sponge combined with Koros bone graft in the interbody space and bilateral SI joints and os design bone graft in the interbody space. Defer Rx to Dr Adams & primary orthopedic team. Course complicated by acute blood loss anemia (see below). Moving bowels, working with PT/OT, etc. (2) Migraines: Plan: continue PRN triptan, tramadol no issues at this time (3) Hyperlipidemia: Plan: continue simvastatin (4) Morbid obesity: Plan: BMI 47 (5) Acute blood loss anemia: Plan: Hb 12.3 pre-op today - Hb 8.3 4 gram drop we discussed Fe supplementation in detail will ask her to take ferrous sulfate 325mg once daily upon discharge f/u with PCP for this (6) Prediabetes: Plan: patient with known history of pre-DM a1c today 6.4% discussed in detail she will f/u with PCP for such Plan Hx B12, vit D deficiencies - cont po B12, Ca/D updated at bedside d/c to home - likely tomorrow per primary ortho team Admission and Anticipated Discharge Date Admission Date: January 27, 2024 Subjective patient sitting in chair having recently eaten her meal denies any complaints except for post-op back pain leg pains are improved +flatus and stool no dyspnea or MATIAS no chest pain no abd pain we discussed her a1c of 6.4% we discussed her low hemoglobin, need for Fe supplementation, etc. Review of Systems Review of Systems: GI - no Nausea/emesis Physical Exam Physical Exam: gen - pleasant, NAD, sitting in chair, obese neck - no JVD mouth - MMM heart - RRR, s1 s2, no murmur lungs - CTA b/l abd - soft NT ND BS+ back/spine - dressings in place/intact lumbar spine region ext - pulses 2+ b/l, no edema neuro - strength 5/5 b/l LEs Results & Data Results & Data Vital Signs (Past 12 Hours) Vital Signs Temp Pulse Resp BP Pulse Ox O2 Del Method 01/31/24 07:12 36.6 C 65 16 145/83 H 93 Room Air Laboratory Results Laboratory Results - last 24 hr 01/31/24 09:47 WBC 12.92 H RBC 3.14 L Hgb 8.3 L Hct 27.3 L MCV 86.9 MCH 26.4 MCHC 30.4 L RDW Std Deviation 50.2 H RDW Coeff of Sarah 15.9 H Plt Count 246 MPV 12.3 Absolute Nucleated RBC 0.10 Nucleated RBC % (auto) 0.8 Estimat Average Glucose 137 Hemoglobin A1c 6.4 H PG Care Time/CCT Total # of Minutes Spent Total Time Spent with Patient: Total time spent is greater than 50% in coordination of care (as documented) at patient's floor/unit and/or counseling patient: Coding Level of Care Code 89076 SUB INP/OBS CARE 07/28MIN Diagnoses Neurogenic claudication due to lumbar spinal stenosis M48.062 Migraines G43.909 Hyperlipidemia E78.5 Morbid obesity E66.01 Acute blood loss anemia D62 Prediabetes R73.03
[2024-02-01] MEDS: ACETAMINOPHEN 500 MG TAB PO PRN (09:05)
--- NOTE | 2024-02-01 10:17 | Discharge Summary ---
Date of Service February 01, 2024 Admission HPI Per Admitting Provider This is a 58-year-old female who presents with chronic persistent back and leg pain and failing course of nonoperative care she is here for surgical invention. Principal Diagnosis Lumbar spinal stenosis with neurogenic claudication Discharge Data Allergies Allergy/AdvReac Type Severity Reaction Status Date / Time No Known Allergies Allergy Unknown Verified 01/27/24 06:21 Consultations 01/27/24 13:31 Consult Hospitalist Routine Procedures Performed Operation Date: 01/27/24 07:45 Actual Procedures p T11 to L2 and L5 to S1 Decompression and Fusion with Iliac Bolts, Hardware Removal L2-L5(Not Applicable) - Francisco Javier Adams DO s S1 Right Sacroiliac Joint Fusion(Not Applicable) - Francisco Javier Adams DO Ordered Studies 01/27/24 [place] lumbar spine 2-3V Routine Hospital Course (1) Neurogenic claudication due to lumbar spinal stenosis: Patient with lumbar decompression fusion trial as well as taken orthopedic for postoperative. Postop patient progressed appropriately throughout her stay. Improvement in ability to ambulate. MARCELINO drain decreasing. Good strength testing. Pain well-controlled. Subsidy discharged home. Discharge orders instructions from the chart for further review. Total Time Total Time Spent Total Time Spent (In Minutes): 20 minutes Discharge Plan Discharge Items Patient Disposition: Home - Home Health Services Reason For Visit: Spinal Stenosis of Lumbar Region with Neurogenic C Discharge Diagnosis: 1. Lumbar spinal stenosis with neurogenic claudication 2. Acute blood loss anemia - discharge hemoglobin 8.3 3. Pre-diabetes (hemoglobin a1c 6.4%) Activity: As commented below Non-emergency contact: Primary Care Provider Call non-emergency contact if: you have any medication questions Follow-up/Referrals: Crista Self MD [Primary Care Provider] - Diet: Regular Addtl Attending Provider Instructions: ACTIVITY RECOMMENDATIONS: SELF CARE INSTRUCTIONS AFTER THORACIC/LUMBAR FUSIONS 1. You may walk to your tolerance. It is good exercise for your legs and back. Expect some back and intermittent leg aches and pains. 2. You may perform "counter-top" level activities (make a sandwich, jennifer with a project, etc.). 3. No bending or lifting of more than 10 pounds or back twisting of any nature (roll like a log when turning in bed). 4. You may ride in a car for 20-30 minutes at a time. No driving until after your first visit with your doctor. 5. Frequent changes of position and restricting sitting to 30 minutes at a time will help limit the amount of back spasms and stiffness you may experience. 6. You may discontinue the use of ambulatory aids (cane, crutches, etc.) once your strength and confidence allow. 7. You may community health planning director the shower and let water strike your incision when you arrive home at least once daily. Do not take a tub bath, sit in a hot tub or go into a swimming pool until after your first recheck in the office. SPECIAL CARE INSTRUCTIONS: VERY IMPORTANT TO READ AND REVIEW A. Your surgical incision has been closed with a cosmetic suture under the skin that will dissolve in about 6 weeks. In 14 days, you can use a pair of clean scissors and cut the suture that is left outside of the skin at the ends of your incision. 1. The small skin tapes can be removed 7 days after surgery if they have not fallen off by that point. 2. You may keep the wound open to air as much as possible to promote healing after post-op day number 5 unless told otherwise by your doctor. 3. If you think the wound looks like it is becoming infected (redness or worsening drainage) and/or you are experiencing fever, chill or worsening back pain and muscle spasms, contact the office so that we may evaluate you as soon as possible. B. Complications are uncommon, but please contact us if you have any signs or symptoms of: 1. wound infection (fever higher than 102.5 degrees F, redness, separation of wound, drainage, or increasing pain from the incision) 2. blood clots in legs (pain, swelling, redness and warmth in legs) 3. urinary tract infection (fever higher than 102.5 degrees F, burning upon urination or increased frequency of urination) 4. nerve problems (inability to walk on your toes or heels, numbness, loss of bowel or bladder control) 5. any other symptoms that concern you C. Please call the office at if you have any concerns or quest ions about your operation or recovery. D. No smoking! Smoking drastically decreases the chance of a solid fusion. E. Do not take any anti-inflammatory medications (Indocin, Advil, Motrin, Aspirin, Naprosyn, etc.) as these may inhibit the chance of a solid fusion. Tylenol is okay to take for pain. MANAGING PAIN AFTER SPINAL SURGERY 1. Narcotic medication is intended for short-term use and will be provided for surgical pain. Surgical pain usually lasts for a period of 4-6 weeks. Narcotic medication includes Percocet, Vicodin, Darvocet, Tylenol #3 or Lortab. 2. Longer-term pain is more appropriately treated with non-narcotic medication such as Tylenol ES. 3. Muscle spasm is not appropriately treated with narcotics. Muscle relaxers such as Soma, Flexeril or Skelaxin can be used along with Tylenol ES. 4. Remember that we all live with some "aches and pains". This is not unusual or uncommon after an injury or as we get older. a. Back pain is expected and may include muscle spasms for 4 to 6 weeks after surgery. The pain should gradually improve. If the pain worsens for no apparent reason, please contact the office. b. Intermittent leg pain may also be experienced and should not be concerned about unless it worsens for no apparent reason. If so, please contact the office. 5. We will provide appropriate medication within the normal guidelines of their prescribed use. We will also be very cautious and aware of potential abuse and extended duration of patients' medication needs. a. Pain medications are for your comfort and to assist with sleep and rest so that the tissue can heal. They are not provided in order to return to normal activity and should not be used through the day. To do so or worsening pain at night can result from ongoing tissue damage and development of tolerance to the prescribed medicine. 6. Please allow 2-3 days to process refills. Prescriptions will not be mailed but must be picked up at the office. FOLLOW UP VISIT: Keep your scheduled follow-up appointment. Any questions, please call the office at . Addtl Oyster Culler Provider Instructions: 1. for your anemia please take [id number] ferrous sulfate 325mg once daily. You may need to do this for 2-3 months. Common side effects of oral iron -- constipation as well as color change of your stool (it will appear dark). Please have your family doctor repeat your CBC blood count in about a week to ensure it is stable. Again your last hemoglobin level at [facility] was 8.3 on 01/31/24. 2. for your pre-diabetes please talk with your family doctor about this and have them repeat your hemoglobin a1c several times each year to monitor it. 3. for constipation you may take 1 or both of the following [id number] medicines - * miralax one serving daily * senna 2 tablets daily It was our pleasure to be involved in your care! -the [facility] Hospitalist Team Pending Studies at Discharge: No Stand-Alone Forms: My [facility], Smoking Cessation Medications and DC Order Prescriptions: New tramadol 50 mg tablet 50 mg PO Q6H PRN (Reason: pain, moderate) Qty: 30 0RF oxycodone 5 mg tablet 5 mg PO Q6H PRN (Reason: pain) Qty: 30 0RF ferrous sulfate 325 mg (65 mg iron) tablet 325 mg PO DAILY Qty: 30 2RF Rx Instructions: purchase [id number] Continued indomethacin 50 mg Capsule 50 mg PO TID estradiol 0.5 mg Tablet 0.5 mg PO QAM Rx Instructions: off 5 days; repeat cycle magnesium 200 mg Tablet 50 mg PO TID coenzyme Q10 [Co Q-10] 100 mg Capsule 100 mg PO TID sumatriptan succinate [Imitrex] 100 mg Tablet 100 mg PO UD PRN (Reason: Migraine Headache) Rx Instructions: take 1 tab at onset of headache; if no relief, may repeat 1 tab after at least 2 hrs; max = 2 tabs/24 hrs aspirin [Aspir-81] 81 mg Tablet,Delayed Release (Dr/Ec) 81 mg PO PM tramadol 50 mg Tablet 50 mg PO Q6H PRN (Reason: Pain) simvastatin [Zocor] 20 mg Tablet 20 mg PO HS zolpidem [Ambien] 5 mg Tablet 5 mg PO HS PRN (Reason: Sleep) calcium carbonate-vitamin D3 [Calcium 600 + D(3)] 600 mg-10 mcg (400 unit) Tablet 1 tab PO HS cyanocobalamin (vitamin B-12) 500 mcg Lozenge 1,000 mcg PO PM Discontinued hydrocodone-acetaminophen 7.5-325 mg Tablet 1 tab PO Q6H PRN (Reason: Pain) Discharge Orders: Discharge Order (Routine); Ordered 02/01/24 Ordered By: Francisco Javier Bruner/Other Patient Handouts: Prediabetes, 5 Steps for Eating Healthier, Iron Supplements, Managing Diabetes: The A1C Test Admission Data Admit Date/Time: 01/27/24 11:25 Attending Provider: Francisco Javier Adams Admit Provider: Francisco Javier Adams Primary Care Provider: Crista Self Other Providers: Malcolm Ching
--- NOTE | 2024-02-01 11:12 | Hospitalist Progress Note ---
Date of Service February 01, 2024 Assessment & Plan (1) Neurogenic claudication due to lumbar spinal stenosis: Plan: POD #5 s/p - #1 removal of posterior instrumentation L2-L5.. #2 exploration of fusion L2-L5. #3 lumbar decompression with bilateral medial facetectomies and foraminotomies L5-S1. #4 posterior spinal fusion L5-S1. #5 interbody fusion L5-S1. #6 placement of Spira 12 x 26 mm x 2 at L5-S1. #7 bilateral open SI joint fusion. #8 placement of Nevro 9 mm SI joint cage on the right. #9 placement posterior segmental instrumentation L2-S1 including bilateral iliac bolts. #10 please infuse collagen sponge combined with Koros bone graft in the interbody space and bilateral SI joints and os design bone graft in the interbody space. Course complicated by acute blood loss anemia (see below). To d/c home today. Pain meds, etc ordered by primary ortho team. I added to her d/c instructions info on iron supplementation, when to have CBC rechecked, how long to take Fe, a1c level. Also added handouts (a1c) to d/c packet. Doing well from ortho standpoint. Radicular pains of legs resolved. (2) Migraines: Plan: continue PRN triptan continue tramadol prn no issues at this time (3) Hyperlipidemia: Plan: continue simvastatin (4) Morbid obesity: Plan: BMI 47 (5) Acute blood loss anemia: Plan: Hb 12.3 pre-op Hb 8.3 on 01-31-24 4 gram drop we discussed Fe supplementation in detail yesterday/today added info to d/c instructions & med list will ask her to take ferrous sulfate 325mg once daily upon discharge x 2-3 months f/u with PCP for this (6) Prediabetes: Plan: patient with known history of pre-DM a1c 6.4% this admission discussed in detail she will f/u with PCP for such handouts on pre-Dm and a1c given Plan Hx B12, vit D deficiencies - cont po B12, Ca/D updated at bedside yesterday from medical standpoint ok to d/c to home today thank you for allowing us to be involved in Ms Gudino's care Admission and Anticipated Discharge Date Admission Date: January 27, 2024 Subjective no issues overnight feels well she is d/c to home this afternoon will have home health nursing no BM today but "feels it coming" eating well no nausea/emesis Review of Systems Review of Systems: cv - no chest pain pulm - no dyspnea or MATIAS GI - no abd pain neuro - radicular pains of legs resolved Physical Exam Physical Exam: gen - pleasant, NAD, sitting in chair - looks good today neck - no JVD mouth - MMM heart - RRR, s1 s2, no murmur lungs - CTA b/l abd - soft NT ND BS+ back/spine - dressings in place/intact lumbar spine region ext - pulses 2+ b/l, no edema neuro - strength 5/5 b/l LEs (knee flexion/extension, hip flexion, ankle dorsiflexion/plantarflexion) psych - a/o x 3 Results & Data Results & Data Vital Signs (Past 12 Hours) Vital Signs Temp Pulse Resp BP Pulse Ox O2 Del Method 02/01/24 10:33 36.7 C 78 18 145/85 H 96 Room Air PG Care Time/CCT Total # of Minutes Spent Total Time Spent with Patient: Total time spent is greater than 50% in coordination of care (as documented) at patient's floor/unit and/or counseling patient: Coding Level of Care Code 95454 SUB INP/OBS CARE 07/28MIN Diagnoses Neurogenic claudication due to lumbar spinal stenosis M48.062 Migraines G43.909 Hyperlipidemia E78.5 Morbid obesity E66.01 Acute blood loss anemia D62 Prediabetes R73.03
[2024-02-01] MEDS: ONDANSETRON INJ 2 MG/ML 2 ML VIAL IV PRN (13:30)
== END 2024-02-01 14:49 | disposition home health service (06) | DRG 454 ==
LOC: ASU 06:01 → 3E 11:25